=== PATIENT | female | born 1980 | race Caucasian/White ===

== ENCOUNTER 2024-06-10 11:55 | Day surgery (SDC) | payer BC, SELFPAY ==
[2024-06-09 10:40] LABS: Basophils # (Auto) 0.1 Thou/mm3 (0.0-0.2); Basophils % (Auto) 2 % (0-2.5); Eosinophils # (Auto) 0.1 Thou/mm3 (0.0-0.5); Eosinophils % (Auto) 1 % (0-10); Hematocrit 39.3 % (36.0-46.0); Hemoglobin 13.2 g/dL (12.0-16.0); Immature Granulocytes % (Auto) 0 % (0-0); Immature Granulocytes Auto 0.01 Thou/mm3 (0.00-0.00); Lymphocytes # (Auto) 2.6 Thou/mm3 (1.0-4.8); Lymphocytes % (Auto) 52 % (10-50); Mean Corpuscular HGB Conc 33.6 g/dl (31.0-37.0); Mean Corpuscular Volume 89 fL (80-100); Monocytes # (Auto) 0.5 Thou/mm3 (0.0-0.8); Monocytes % (Auto) 11 % (0-12); Neutrophils # (Auto) 1.7 Thou/mm3 (1.8-7.7); Neutrophils % (Auto) 34 % (37-80); Nucleated Red Blood Cell % 0 /100 WBC (0); Platelet Count 313 Thou/mm3 (140-440); White Blood Count 5.1 Thou/mm3 (3.6-11.0)
[2024-06-09 10:44] LABS: HCG Qualitative,Urine Negative
[2024-06-09 10:57] LABS: Alanine Aminotransferase 18 U/L (10-49); Albumin/Globulin Ratio 2.2 (1.2-2.2); Alkaline Phosphatase 40 U/L (46-116); Anion Gap 6 (7-16); Aspartate Amino Transferase 18 U/L (0-34); BUN/Creatinine Ratio 19 Ratio (12-20); Bilirubin,Total 0.6 mg/dL (0.3-1.2); Blood Urea Nitrogen 15 mg/dL (9-23); Calcium 9.5 mg/dL (8.3-10.6); Calcium (Corrected) 9.5 mg/dL (8.5-10.1); Carbon Dioxide 26.4 mMol/L (20.0-31.0); Chloride 104 mMol/L (98-107); Creatinine (Component) 0.8 mg/dL (0.6-1.3); Globulin 2.3 gm/dL (2.3-3.5); Glucose 95 mg/dL (74-106); Osmolality,Calculated 272 (275-295); Potassium 4.3 mMol/L (3.4-5.1); Sodium 136 mMol/L (136-145); Total Protein 7.3 gm/dL (5.7-8.2); eGFR > 60 See Note
[2024-06-09 11:21] LABS: INR 1.1 (0.9-1.3); Partial Thromboplastin Time 27.6 Seconds (22.0-36.0); Prothrombin Time 11.7 Seconds (9.0-12.2)
[2024-06-10 12:34] VITALS: BP 116/65; PULSE 59; RESP 15; TEMP 36.7; O2SAT 100; BMI 23.3
[2024-06-10] MEDS: RINGERS LACTATED 1000 ML 1,000 ML 125 ML IV (13:25)
[2024-06-10 13:53] VITALS: BP 102/55; PULSE 74; RESP 17; TEMP 36.6; O2SAT 99
[2024-06-10 14:03] VITALS: BP 101/64; PULSE 55; RESP 16; O2SAT 100
[2024-06-10 14:13] VITALS: BP 108/81; PULSE 64; RESP 18; O2SAT 100
[2024-06-10 14:23] VITALS: BP 115/76; PULSE 66; RESP 16; O2SAT 100
--- NOTE | 2024-06-10 14:26 | SUR.PHASEII ---
1425 Pt more awake and alert. Denies pain or N/V. Abd soft. Pt chace po fluids.
--- NOTE | 2024-06-10 15:17 | SUR.PHASEII ---
1502 Pt assessment unchanged. No complaints. Amb with steady gait. Able to dress self. Pt and , Jae, given dc instructions. Both state understanding. Pt meets dc criteria-to home.
== END 2024-06-10 15:02 | disposition home or self-care (01) ==
PROVIDERS: PCP Internal Medicine; Referring Provider Surgery; Visit Provider Surgery
PROC: 0DBE8ZX Excision of Large Intestine, Via Natural or Artificial Opening Endoscopic, Diagnostic (ICD-10-PCS; CPT 45380; principal; 2024-06-10 13:45)
DX: K62.5 Hemorrhage of anus and rectum (principal); Z80.0 Family history of malignant neoplasm of digestive organs
CPT/HCPCS: 45378; 36415; 80053; 81025; 85025; 85610; 85730; A4217; J7120